=== PATIENT | female | born 1950 | race Caucasian/White ===

== ENCOUNTER → 2018-10-02 | Outpatient (CLI) | payer BC, MEDICARE ==
[~2018-10-02] MED LIST: ADVAIR; ALBU.083IS IH; ALBU90OI61; Adipex-P37.5 MG PO; CALCIUM PO; CHLO25B PO; CYAN1000 PO; ESTR2 PO; HYDACE5 PO; LEVO-T150 MCG PO; LEVO750 PO; LEVSOD100 PO; LISI5 PO; MULVITMIND PO; OMEP20ER PO; VITAMIN D-32000 UNIT PO
[2018-10-02 19:30] LABS: Albumin, Blood 3.9 g/dL (3.4-5.0); Bilirubin, Total 0.3 mg/dL (0.1-1.0); Bun/Creatinine Ratio 18.9 (12.0-20.0); Calcium, Blood 9.6 mg/dL (8.5-10.1); Creatinine, Blood 1.06 mg/dL (0.40-1.00); Potassium, Blood 3.3 mmol/L (3.5-5.5); Total Protein, Blood 7.9 g/dL (6.4-8.2)
== END | disposition home or self-care (01) ==
LOC: LAB SHORT 18:48 → LAB 18:48
PROVIDERS: Emergency Medicine
DX: R10.9 Unspecified abdominal pain (principal)
CPT/HCPCS: 80053

== ENCOUNTER 2020-02-23 14:02 | Day surgery (SDC) | payer BC, MEDICARE ==
[~2020-02-23] VITALS: Wt 79.3 kg
[~2020-02-23 14:02] MED LIST changes: +Aspir 8181 MG PO; +EUTHYROX125 MCG PO
--- NOTE | 2020-02-23 14:40 | NUR ---
02/23/20 1440 Aris Burnett History, Chart, Medications and Allergies reviewed before start of procedure.MONITOR INTACT WITH CONTINUOUS PULSE OXIMETRY AND INTERMITTENT BP.3-LEAD EKG REVIEWED WITH PHYSICIAN PRIOR TO START OF PROCEDURE.O2 VIA N/C INTACT THROUGHOUT SEDATION/PROCEDURE. PATIENT DETERMINED TO BE ASA APPROPRIATE FOR PROPOFOL SEDATION PRIOR TO START OF PROCEDURE BY DR. RICHARD.
--- NOTE | 2020-02-23 14:49 | NUR ---
LATE ENTRY 1411 Ambulatory in Day Surgery. History, Chart, Medications and Allergies reviewed before start of procedure. Lungs clear T/O to Auscultation. Patient confirms NPO status and agrees with scheduled surgery. Patient States Post-Procedure ride home has been arranged.
== END 2020-02-23 23:23 | disposition home or self-care (01) ==
LOC: ORSCMMR 14:02 → ORD 15:15 → ORSCMMR 23:23
PROVIDERS: Internal Medicine Gastroenterology
PROC: 0DB68ZX Excision of Stomach, Via Natural or Artificial Opening Endoscopic, Diagnostic (ICD-10-PCS; principal; 2020-02-23 15:15)
DX: K21.9 Gastro-esophageal reflux disease without esophagitis (principal); E03.9 Hypothyroidism, unspecified; E66.01 Morbid (severe) obesity due to excess calories; Z68.31 Body mass index [BMI] 31.0-31.9, adult; Z87.891 Personal history of nicotine dependence; Z79.899 Other long term (current) drug therapy; Z79.82 Long term (current) use of aspirin
CPT/HCPCS: J2704; J7120

== ENCOUNTER 2022-06-03 09:55 | Day surgery (SDC) | payer BC, MEDICARE ==
[~2022-06-03] VITALS: Ht 160 cm; Wt 87.9 kg
[~2022-06-03 09:55] MED LIST changes: +Amlodipine Bes2.5 MG PO; +Hair, Skin & N1 EACH PO; -MULVITMIND PO; +NEBI5 PO
[2022-06-03] MEDS ORDERED: ALDACTONE100 MG PO (11:21)
[2022-06-03] MEDS ORDERED: PANT40 PO (11:21)
[2022-06-03] MEDS ORDERED: FURO20 PO (11:22)
[2022-06-03] MEDS ORDERED: ATOR40TA PO (11:22)
--- NOTE | 2022-06-03 11:26 | NUR ---
Ambulatory in Day Surgery History, Chart, Medications and Allergies reviewed before start of procedure. Pre-Op teaching done. Pt verbalizes understanding. Patient States Post-Procedure ride home has been arranged with
--- NOTE | 2022-06-03 11:49 | NUR ---
06/03/22 1149 Cristal Rosales HISTORY, CHART, MEDICATIONS AND ALLERGIES REVIEWED BEFORE START OF PROCEDURE. PATIENT CONFIRMS NPO STATUS AND AGREES WITH SCHEDULED PROCEDURE. 3-LEAD EKG REVIEWED WITH PHYSICIAN PRIOR TO START OF PROCEDURE. MONITOR INTACT WITH CONTINUOUS PULSE OXIMETRY,CAPNOGRAPHY, 3-LEAD EKG, INTERMITTENT BP. SUPPLEMENTAL O2 TO BE TITRATED THROUGHOUT PROCEDURE TO MAINTAIN O2 SATURATION ABOVE 90%. PATIENT DETERMINED TO BE ASA APPROPRIATE FOR PROPOFOL SEDATION PRIOR TO START OF PROCEDURE BY DR. RODRIGUEZ.
--- NOTE | 2022-06-03 12:53 | NUR ---
Patient up to Ambulate independently. Gait steady. Discharge instructions reviewed with patient. Patient verbalizes understanding. Copy given to patient to take home. Patient States Post-Procedure ride home has been arranged. Discharged via wheelchair to private car for ride home.
== END 2022-06-03 23:59 | disposition home or self-care (01) ==
LOC: ORSCMMR 09:55 → ORD 11:30 → ORSCMMR 11:30
PROVIDERS: Surgery
PROC: 0DBN8ZX Excision of Sigmoid Colon, Via Natural or Artificial Opening Endoscopic, Diagnostic (ICD-10-PCS; principal; 2022-06-03 11:30)
DX: Z12.11 Encounter for screening for malignant neoplasm of colon (principal); K63.5 Polyp of colon; Z86.010 Personal history of colon polyps; J45.909 Unspecified asthma, uncomplicated; K21.9 Gastro-esophageal reflux disease without esophagitis; Z85.51 Personal history of malignant neoplasm of bladder; E78.5 Hyperlipidemia, unspecified; E03.9 Hypothyroidism, unspecified; Z79.82 Long term (current) use of aspirin; Z79.899 Other long term (current) drug therapy; Z87.891 Personal history of nicotine dependence
CPT/HCPCS: 88305; J2704; J7120

== ENCOUNTER → 2024-11-23 | Outpatient (CLI) | payer OTHER ==
[~2024-11-23] MED LIST changes: +ALDACTONE100 MG PO; +ATOR40TA PO; +FURO20 PO; +PANT40 PO
[2024-11-29 14:45] LABS: B PERTUSSIS/PARAPERTUSS SOURCE Not Provided; BORD PARAPERTUSSIS BY PCR Not Detected; BORDETELLA PERTUSSIS BY PCR Not Detected
== END ==
LOC: LAB SHORT 07:05 → LAB 07:05
PROVIDERS: Internal Medicine
DX: R05.9 Cough, unspecified (principal); R06.02 Shortness of breath
CPT/HCPCS: 87070; 87205; 87798